=== PATIENT | female | born 1995 | race Caucasian/White ===

== ENCOUNTER 2017-08-11 11:55 | Day surgery (SDC) | payer BC ==
[~2017-08-11] VITALS: Ht 170.2 cm; Wt 61.0 kg
[~2017-08-11 11:55] MED LIST: MULTI VITAMINS1 TAB PO; NORCO 325 MG-51 TAB PO; SPRINTEC 35 MCG1 TAB PO; SYNTHROID0.05 MG/TA PO
[2017-08-11 12:36] VITALS: BP 133/83; PULSE 76; TEMP 97.9
[2017-08-11] MEDS ORDERED: TIROSINT25 MC1 PO (12:50)
[2017-08-11] MEDS ORDERED: PEPCID 20MG TAB20 MG PO (12:51)
[2017-08-11] MEDS ORDERED: TIROSINT50 MC1 PO (12:52)
[2017-08-11 14:10] VITALS: BP 127/96; PULSE 75; TEMP 97.7
[2017-08-11 14:25] VITALS: BP 117/95; PULSE 61
[2017-08-11 14:40] VITALS: BP 111/83; PULSE 16
[2017-08-11 15:56] VITALS: BP 125/89; PULSE 93
== END 2017-08-11 14:50 | disposition home or self-care (01) ==
LOC: SDCO 11:55
DX: K29.30 Chronic superficial gastritis without bleeding (principal); K58.9 Irritable bowel syndrome, unspecified; K59.09 Other constipation
CPT/HCPCS: OP; J2250; J3010; J7030

== ENCOUNTER → 2017-08-20 | Outpatient (CLI) | payer BC ==
[~2017-08-20] MED LIST changes: +PEPCID 20MG TAB20 MG PO; +TIROSINT25 MC1 PO; +TIROSINT50 MC1 PO
== END ==
LOC: COL.RAD 06:05
DX: R68.81 Early satiety (principal); R11.0 Nausea
CPT/HCPCS: A9541

== ENCOUNTER 2020-11-06 17:03 | Inpatient (IN) | payer BC ==
[2020-11-06] VITALS (23 sets, daily range): BP systolic 128–159; BP diastolic 72–100; PULSE 75–117; TEMP 98.9
[~2020-11-06] VITALS: Ht 170.2 cm; Wt 85.5 kg
--- NOTE | 2020-11-06 17:15 | NUR ---
Patient ambulatory to LR3 with spouse, changed into gown, FHR/TOCO monitors placed and explained. Patient states she has been randi since 429 and contractions have became closer and stronger. Denies any leaking of fluid/vaginal bleeding/decreased . Plan of care discussed. 1718: SVE-/-[address] Boucher called and updated and admit orders received. 1725: Plan of care updated and IV started in left upper arm, blood obtained and to lab, LR infusing. 1745: Patient standing at bedside and FHR monitor tracing maternal heart rate intermittently, monitor adjusted. 1807: Dr. Boucher at bedside assessing patient and FHR and discussing plan of care. SVE per physician: -/0 and AROM at this time with clear fluid noted. 1810: Regan KRISHNAMURTHY at bedside and given report.
[2020-11-06] MEDS ORDERED: PRENATAL TABLET PO (17:51)
[2020-11-06 18:21] LABS: HEMOGLOBIN 14.2 g/dl (12.5-16.0); MEAN CELL VOLUME 90 fl (80.0-100.0); MEAN CORPUSCULAR HEMOGLOBIN 31 pg (27.0-31.0); MEAN CORPUSCULAR HGB CONC 34 g/dl (33.0-37.0); MEAN PLATELET VOLUME 11.4 fl (7.4-10.4); PLATELET COUNT 249 K/mm3 (130-400); RED BLOOD COUNT 4.65 M/mm3 (4.10-5.30); REDCELL DISTRIBUTION WIDTH-CV 12.9 % (11.5-14.5)
--- NOTE | 2020-11-06 18:30 | NUR ---
standing @ bedside, rocking with contractions. sits on edge of bed between. Reports contractions "stronger", working well with contrractions. Denies needs @ this time.
--- NOTE | 2020-11-06 19:43 | NUR ---
To edge of bed for epidural placement. Tracie DEVOPS DEVELOPER, see anesthesia record.
[2020-11-06 19:50] LABS: BAND 3 % (0-10); LYMPHOCYTE 13 % (20.0-51.0); METAMYELOCYTE 1 % (0-0); NEUTROPHILS 79 % (42.0-75.2); PLATELET ESTIMATE NORMAL (NORMAL)
--- NOTE | 2020-11-06 23:49 | NUR ---
Dr Boucher into room assessses pushing. Reviews plan of care option with pt and spouse: Continue pushing, attempt vacuum assist, or C/S. PT and spouse elect to continue pushing for 1 hour then reassess.
[2020-11-07] VITALS (15 sets, daily range): BP systolic 113–138; BP diastolic 62–87; PULSE 71–101; TEMP 97.9–98.3
--- NOTE | 2020-11-07 00:15 | NUR ---
FHT's with decelerations to 90[address] pushing[address] Dr Boucher continues at L&D desk.
--- NOTE | 2020-11-07 00:50 | NUR ---
FHT's to 160's, decels to 120's with pushing. 0055 Dr Boucher into room to assess pushing progress. Discusses vacuum assist with pt and spouse. Questions invited and answered. Epidural dosed by Tracie VALDEZ. Straight cath by Dr Boucher with return small amount concentrated. 0100 Vacuum assist vaginal delivery of female by Dr Boucher.
--- NOTE | 2020-11-07 01:05 | NUR ---
Placenta delivers spont and intact with 3 vessell cord. Pitocin gtt to bolus rate. Perineal repair in progress.
--- NOTE | 2020-11-07 01:25 | NUR ---
Perineal repair complete, fundus firm with minimal lochia no clots. Perineum extremely swollen, ice pack to perinuem. bed together.
--- NOTE | 2020-11-07 04:30 | NUR ---
IV to INT, epidural dc'd. Attempt to get pt up to bathroom. Pt unable to move L leg, able to move L foot, but not bend knees. Fundus firm, voids moderate amount with fundal massage. Pericare performed, new ice pack placed. Clean gown on. Motrin given. Lights dimmed, encouraged to rest.
[2020-11-08 07:15] VITALS: BP 125/81; PULSE 77; TEMP 98
[2020-11-08] MEDS ORDERED: IBU800 M1 PO (07:36)
--- NOTE | 2020-11-08 09:00 | NUR ---
Verbal order received by Roles that pt may discharge home later today if receives discharge order as well.
--- NOTE | 2020-11-08 09:16 | NUR ---
Initial visit; Parents thanked Complex Care Nurse for offering congratulations for the of their daughter. Complex Care Nurse thanked family for choosing [place].
[2020-11-08 15:30] VITALS: BP 104/57; PULSE 104; TEMP 97.9
--- NOTE | 2020-11-08 18:55 | NUR ---
Discharge instructions reviewed with pt and spouse. Questions invited and answered. Ambulatory off unit.
== END 2020-11-08 18:55 | disposition home or self-care (01) | DRG 768 ==
LOC: LDRO 17:03 → LDR 17:25 → OB 11-07 07:30
PROVIDERS: Obstetrics & Gynecology; ADMIT Obstetrics & Gynecology
PROC: 10D07Z6 Extraction of Products of Conception, Vacuum, Via Natural or Artificial Opening (ICD-10-PCS; principal; 2020-11-07)
PROC: 0DQR0ZZ Repair Anal Sphincter, Open Approach (ICD-10-PCS; 2020-11-07)
DX: O99.284 Endocrine, nutritional and metabolic diseases complicating childbirth (principal); Z37.0 Single live birth; O75.81 Maternal exhaustion complicating labor and delivery; Z3A.39 39 weeks gestation of pregnancy; O70.20 Third degree perineal laceration during delivery, unspecified; E03.9 Hypothyroidism, unspecified
CPT/HCPCS: J2400; J2590; J2795; J7120

== ENCOUNTER 2024-02-28 00:16 | Inpatient (IN) | payer BC ==
[2024-02-28] VITALS (27 sets, daily range): BP systolic 116–166; BP diastolic 60–93; PULSE 60–92; TEMP 98–98.5
[~2024-02-28] VITALS: Ht 170.2 cm; Wt 88.6 kg
[~2024-02-28 00:16] MED LIST changes: +IBU800 M1 PO; +PRENATAL TABLET PO
--- NOTE | 2024-02-28 00:23 | NUR ---
0023-ARRIVED TO ROOM WITH COMPLAINT OF CONTRACTIONS INCREASING THIS EVENING AND BECOMING STRONG. PT IS MOANING AND BREATHING THROUGH CTX. ACCOMPANIED BY . CHANGED TO GOWN AND THEN EFM APPLIED. DENIES ROM OR VAGINAL BLEEDING. REPORTS ACTIVE FM. 0028-SVE 7CM VERY STRETCHY WITH PALPABLE BOW. PT DESIRES EPIDURAL.
[2024-02-28] MEDS ORDERED: LR & Oxytocin 500 ML IV SCH (00:45)
[2024-02-28] MEDS ORDERED: LR 1,000 ML IV SCH (00:45)
[2024-02-28] MEDS ORDERED: ROPivacaine PF 0.2% 200 ML IV ONE (00:51)
[2024-02-28 01:15] LABS: BASO % 0.2 % (0.0-2.0); EOS # 0.1 K/mm3 (0.0-0.7); EOS % 0.4 % (0.0-4.0); GRAN # 9.2 K/mm3 (1.4-6.5); GRAN % 76.2 % (42.2-75.2); HEMATOCRIT 41.1 % (37.0-47.0); HEMOGLOBIN 13.9 g/dl (12.5-16.0); LYMPH # 1.8 K/mm3 (1.2-3.4); LYMPH % 15.1 % (20.0-51.0); MEAN CELL VOLUME 90 fl (80.0-100.0); MEAN CORPUSCULAR HEMOGLOBIN 30 pg (27-31); MEAN CORPUSCULAR HGB CONC 34 g/dl (33.0-37.0); MEAN PLATELET VOLUME 11.1 fl (7.4-10.4); MONO # 0.9 K/mm3 (0.1-0.6); PLATELET COUNT 230 K/mm3 (130-400); RED BLOOD COUNT 4.58 M/mm3 (4.10-5.30); REDCELL DISTRIBUTION WIDTH-CV 12.7 % (11.5-14.5)
[2024-02-28] MEDS ORDERED: ePHEDrine 50 MG/10 ML VIAL IV PRN (01:15)
[2024-02-28] MEDS ORDERED: diphenhydrAMINE 25 MG CAP PO PRN (01:15)
[2024-02-28] MEDS ORDERED: Ondansetron 4 MG/2 ML VIAL IV PRN (01:15)
[2024-02-28] MEDS ORDERED: diphenhydrAMINE 50 MG/ML 1 ML VIAL IV PRN (01:15)
[2024-02-28] MEDS ORDERED: Naloxone 0.4 MG/ML VIAL IV PRN ×2 (01:15→04:30)
--- NOTE | 2024-02-28 01:56 | NUR ---
0050- LR BOLUS BEGUN AND MOTOR POLARIZER ARRIVES AT BEDSIDE. 0054- SITTING UP FOR EPIDURAL 0058-SINGLE SHOT PER MOTOR POLARIZER 0102-ASSISTED TO LAY BACK TO LOW FOWLERS 0110-PT COMFORTABLE WITH EPIDURAL
--- NOTE | 2024-02-28 02:17 | NUR ---
PT HAD LATE DECEL TO 90 BPM WITH SLOW RETURN TO BASELINE IN 2 MINUTES FOLLOWED BY A VARIABLE DECEL WITH NEXT CTX WITH QUICK RETURN TO BL. SVE 9CM, BLOODY SHOW. PT TO RT TILT.
--- NOTE | 2024-02-28 02:35 | NUR ---
ATTEMPTED TO STRAIGHT CATH PT. DIFFICULTY PASSING CATHETER. MEETING RESISTANCE AT HEAD. ATTEMPTED CHANGING POSITION AND SVE TO RELIEVE PRESSURE FROM HEAD. 2ND ATTEMPT PER CHARGE NURSE. WAS ABLE TO PASS CATHETER BUT NO URINE RETURNED.
--- NOTE | 2024-02-28 03:05 | NUR ---
PT MOVED TO RT LATERAL POSITION
--- NOTE | 2024-02-28 03:26 | NUR ---
0326-FHR DECEL TO 50'S. SVE COMPLETE AND +2-+3 WITH BULGING BAG. PT TURNED TO LT TILT AND MD CALLED. LR BOLUS BEGUN. 0333-FHR RECOVERING TO [phone]-MD TO ROOM. NO FURTHER DECELS NOTED. PT PREPPED FOR PUSHING.
--- NOTE | 2024-02-28 03:44 | NUR ---
0344-MD ARRIVED AT BEDSIDE. 0347-AROM CLEAR FLUID 0349-PUSHING WITH CTX. 0400- PER MD. 0404-PLACENTA DELIVERED INTACT. 0413-REPAIR COMPLETE 0415-STRAIGHT CATH PER MD. APPROX 100ML. SOME DIFFICULTY PASSING CATHETER. MET RESISTANCE. DISCUSSED WITH MD DIFFICULTY PASSING STRAIGHT CATH DURING LABOR. 0418-EPIDURAL INFUSION STOPPED.
[2024-02-28] MEDS ORDERED: Mag/Al Hydrox/Simeth Susp 30 ML CUP PO PRN (04:30)
[2024-02-28] MEDS ORDERED: Witch Hazel 50% Pads Bulk TUB TP PRN (04:30)
[2024-02-28] MEDS ORDERED: Phenylephrine/Mineral Oil/Petrolatum 57 GM TUBE RC PRN (04:30)
[2024-02-28] MEDS ORDERED: Loratadine 10 MG TAB PO PRN (04:30)
[2024-02-28] MEDS ORDERED: Measles/Mumps/Rubella Virus Vaccine Live w Diluent 0.5 ML VIAL SQ SCH (04:30)
[2024-02-28] MEDS ORDERED: oxyCODONE 5 MG TAB PO PRN (04:30)
[2024-02-28] MEDS ORDERED: Ibuprofen 600 MG TAB PO SCH (04:30)
[2024-02-28] MEDS ORDERED: Magnes Hydrox (MOM) 80 MG/ML 30 ML CUP PO PRN (04:30)
[2024-02-28] MEDS ORDERED: Acetaminophen 500 MG TAB PO SCH (04:30)
[2024-02-28] MEDS ORDERED: VITAMIN D 50,1.25 MG PO (05:56)
[2024-02-28] MEDS ORDERED: Sennosides/Docusate 8.6-50 MG TAB PO SCH (08:00)
[2024-02-28] MEDS ORDERED: traZODone 50 MG TAB PO PRN (21:00)
[2024-02-29 02:30] VITALS: BP 128/78; PULSE 76; TEMP 97.8
[2024-02-29 08:00] VITALS: BP 124/80; PULSE 80; TEMP 98.5
[2024-02-29] MEDS ORDERED: IBU600 MG PO (09:39)
--- NOTE | 2024-02-29 12:50 | NUR ---
Initial visit; Parents thanked Industrial Relations Manager for offering congratulations and God's blessings for the of their daughter. Industrial Relations Manager thanked family for choosing [facility].
[2024-02-29 16:11] VITALS: BP 120/84; PULSE 72; TEMP 98.3
--- NOTE | 2024-02-29 17:34 | NUR ---
DISCHARGE TEACHING COMPLETED. EDUCATED ON FOLLOW UP APPOINTMENT AND PRESCIPTION. QUESTIONS INVITED AND ANSWERED.
--- NOTE | 2024-02-29 18:30 | NUR ---
HAMILTON CHECKED AND PT AMBULATORY OFF UNIT WITH INFANT AND SPOUSE.
== END 2024-02-29 18:30 | disposition home or self-care (01) | DRG 807 ==
LOC: LDRO 00:16 → LDR 00:42 → OB 09:00
PROVIDERS: Obstetrics & Gynecology; ADMIT Obstetrics & Gynecology
PROC: 10E0XZZ Delivery of Products of Conception, External Approach (ICD-10-PCS; principal; 2024-02-28)
PROC: 0KQM0ZZ Repair Perineum Muscle, Open Approach (ICD-10-PCS; 2024-02-28)
PROC: 0UQMXZZ Repair Vulva, External Approach (ICD-10-PCS; 2024-02-28)
DX: O99.284 Endocrine, nutritional and metabolic diseases complicating childbirth (principal); Z37.0 Single live birth; E03.9 Hypothyroidism, unspecified; Z3A.39 39 weeks gestation of pregnancy; O69.81X0 Labor and delivery complicated by cord around neck, without compression, not applicable or unspecified; O70.1 Second degree perineal laceration during delivery
CPT/HCPCS: J2590; J2795; J7120